=== PATIENT | female | born 1955 ===

== ENCOUNTER → 2021-12-19 | Outpatient (CLI) | payer BC ==
--- NOTE | 2021-12-19 20:30 | CA ---
Exercise Stress Test Report Name: Otilia Rizvi Exam Date: 12/19/2021 08:59 Exam Location: [facility] Ht (in): 67 Wt (lb): 126 BSA: 1.66 Ordering Phys: Janet Jimenez DO Referring Phys: Pepper Aly PAC Technologist: Hemanth Wood Age: 66 Gender: F : 1955 Procedure CPT: Indications: R94.31 ABNORMAL EKG ICD-10 Codes: Patient History: Abnormal EKG Medications: Meds past 24 hrs: Pretest Chest Pain: STRESS TEST Nakul Protocol Exercise Duration (min:sec): 09:[address] Depressions (mm): Angina Score: Rodriguez Score: Resting HR (bpm): 55 Peak HR (bpm): 130 Resting BP (mmHg): 124 / 77 Peak BP (mmHg): 214 / 87 MPHR: 156 Target HR: 133 % MPHR: 83 METS: 10.9 Total Dose: Peak Dose: Atropine: Double Product: 75703 BP Response: Stress Termination: Leg fitgue and carmping Stress Symptoms: No chest pain or symptoms Stress Summary: ECG ANALYSIS Resting ECG: Stress ECG: CONCLUSIONS Patient underwent exercise stress test Baseline heart rate 55 beats a minute, Baseline blood pressure 124/77 mmHg She exercised on Nakul protocol for 9 minutes 20 seconds achieving a peak heart rate of 131 beats a minute. Hypertensive response to exercise of 214/87 mmHg Abnormal ECG at baseline with 0.[address] depression inferolaterally, sinus mechanism No ECG evidence for ischemia 2 short runs of nonsustained atrial tachycardia with exercise No sustained arrhythmias Dr. Bhavin Eaton MD (Electronically Signed) Final Date: 19 December 2021 20:29
== END | disposition home or self-care (01) ==
LOC: RADNMMAIN 08:22
PROVIDERS: ATTEND Family Medicine
DX: R94.31 Abnormal electrocardiogram [ECG] [EKG] (principal)
CPT/HCPCS: 93017